=== PATIENT | male | born 1965 | race Two or more races ===

== ENCOUNTER 2023-12-29 17:51 | Emergency (ER) | payer MEDICAID, OTHER ==
[~2023-12-29] VITALS: Ht 172.7 cm; Wt 100.0 kg
[2023-12-29 19:26] LABS: Basophils # (auto) 0.1 10 ^3/uL (0-0.2); Basophils % (auto) 0.3 % (0.0-2.0); Eosinophils # (auto) 0 10 ^3/uL (0-0.8); Hematocrit 46.1 % (41.0-53.0); Hemoglobin 15.5 g/dL (13.5-17.5); Lymphocytes # (auto) 1.7 10 ^3/uL (0.4-5.4); Lymphocytes % (auto) 8.8 % (10.0-50.0); Mean Corpuscular Hemoglobin 30.5 pg (28.0-32.0); Mean Corpuscular Hgb Conc. 33.7 g/dL (32.0-36.0); Mean Corpuscular Volume 90.7 fL (80.0-100.0); Monocytes # (auto) 1.3 10 ^3/uL (0-1.3); Monocytes % (auto) 6.9 % (0.0-12.0); Red Blood Cells 5.09 10^6/uL (4.5-5.90); Red Cell Distribution Width 13.5 % (11.8-14.3); White Blood Cell 19.1 10^3/uL (4.4-10.8)
[2023-12-29 19:32] LABS: Urine Bacteria NONE SEEN /hpf (None Seen); Urine Blood 2+ /uL (Negative); Urine Clarity HAZY (Clear); Urine Color Yellow (Yellow); Urine Mucus FEW (None Seen); Urine Protein, UAD 2+ (Negative); Urine Specific Gravity 1.028 (1.001-1.035); Urine WBC 269 /hpf (0 - 3)
[2023-12-29 19:37] LABS: Chloride 108 mmol/L (98-107); Potassium 3.5 mmol/L (3.5-5.1); Sodium 138 mmol/L (136-145)
[2023-12-29 19:38] LABS: Calcium 10.2 mg/dL (8.5-10.1)
[2023-12-29 19:43] LABS: BUN/Creatinine Ratio 8.4 (10.0-20.0); Blood Urea Nitrogen 9 mg/dL (9-23); Glucose 140 mg/dL (74-106)
[2023-12-29 19:44] LABS: Anion Gap 9 (5-15); Carbon Dioxide 21 mmol/L (20-30)
[2023-12-29] MEDS ORDERED: CEPH250C PO (20:54)
[2023-12-29] MEDS ORDERED: PANT40TA2 PO (20:54)
[2023-12-29 21:28] VITALS: BP 140/93
[2023-12-29 21:32] VITALS: PULSE 117; RESP 18; O2SAT 96
== END 2023-12-29 21:33 | disposition home or self-care (01) ==
LOC: ER 17:51
DX: N39.0 Urinary tract infection, site not specified (principal); K29.70 Gastritis, unspecified, without bleeding; Z79.899 Other long term (current) drug therapy
CPT/HCPCS: 36415; 74150; 80048; 81001; 85025